=== PATIENT | male | born 1945 | race Caucasian/White ===

== ENCOUNTER 2020-12-13 13:04 | Outpatient (RCR) | payer MEDICARE, OTHER | END 2020-12-15 | disposition home or self-care (01) | LOC: ONC 13:04 | PROVIDERS: ATTEND Radiology Radiation Oncology | DX: C61 Malignant neoplasm of prostate (principal) | CPT/HCPCS: 77300; 77334; 77336; 77338; 77385 ==

== ENCOUNTER 2021-02-17 09:51 | Outpatient (RCR) | payer MEDICARE, OTHER | END 2021-03-17 | disposition home or self-care (01) | LOC: ONC 09:51 | PROVIDERS: ATTEND Radiology Radiation Oncology | DX: C61 Malignant neoplasm of prostate (principal); R35.1 Nocturia; Z92.3 Personal history of irradiation | CPT/HCPCS: 77336; 99213 ==